=== PATIENT | female | born 1935 | race African-American/Black ===

== ENCOUNTER 2017-03-27 11:44 | Outpatient (CLI) | payer MEDICAID, MEDICARE ==
[2017-03-27 12:36] LABS: ALT (SGPT) 13 U/L (8-55); AST (SGOT) 21 U/L (5-34); Alkaline Phosphatase 76 U/L (40-150); Anion Gap 14 mmol/L (10-20); BUN (Urea Nitrogen) 21 mg/dL (9.8-20.1); Bilirubin, Total 0.5 mg/dL (0.2-1.2); Calc. Creatinine Clearance 0 mL/min (70-130); Calcium 9.3 mg/dL (7.8-10.44); Carbon Dioxide 30 mmol/L (23-31); Cardiac Risk 2.6 (Less than 4.5); Chloride 101 mmol/L (98-107); Cholesterol 156 mg/dL (< 200 Desired); Estimated GFR-MDRD 47; Globulin 2.9 g/dL (2.4-3.5); Glucose 90 mg/dL (83-110); HDL Cholesterol 60 mg/dL (>60 Neg Risk); LDL Cholesterol, Calculated 82 mg/dL; Potassium 4.1 mmol/L (3.5-5.1); Protein, Total 6.9 g/dL (5.8-8.1); Sodium 141 mmol/L (136-145); Triglycerides 70 mg/dL (Less than 150)
== END 2017-03-27 11:45 | disposition home or self-care (01) ==
LOC: MADLAB 11:44
PROVIDERS: ATTEND Internal Medicine Cardiovascular Disease
DX: E78.00 Pure hypercholesterolemia, unspecified (principal)
CPT/HCPCS: 36415; 80053; 80061; 84443

== ENCOUNTER 2018-08-17 11:43 | Outpatient (CLI) | payer MEDICARE, MEDICAID ==
--- NOTE | 2018-08-17 15:26 | ULT ---
THYROID ULTRASOUND: HISTORY: Followup of left thyroid nodule. COMPARISON: 07/31/2017 TECHNIQUE: Real-time imaging of the right and left lobes of the thyroid was performed. FINDINGS: The right lobe measures 1.1 x 1.4 x 3.8 cm in size. No mass is identified. On the left side, the left lobe measures 0.7 x 1.5 x 3.9 cm. The nodule seen on the previous examina tion is difficult to even definitely perceive on the current study. There is a vague, hypoechoic are a seen, which could correspond to the previous density. It measures in the 1 cm range. IMPRESSION: The left lobe nodule seen on the prior examination is definitely smaller and is actually difficult to even definitely perceive, although there does still appear to be a hypoechoic area, measuring in the 1 cm range. POS: ALAN
== END 2018-08-17 11:44 | disposition home or self-care (01) ==
LOC: MADULT 11:43
PROVIDERS: ATTEND Otolaryngology Plastic Surgery within the Head & Neck
DX: E04.1 Nontoxic single thyroid nodule (principal)
CPT/HCPCS: 76536

== ENCOUNTER 2020-01-18 18:30 | Emergency (ER) | payer MEDICARE, MEDICAID | END 2020-01-18 19:24 | disposition home or self-care (01) | LOC: MADERS 18:30 | DX: M62.838 Other muscle spasm (principal); E03.9 Hypothyroidism, unspecified; K21.9 Gastro-esophageal reflux disease without esophagitis; I25.10 Atherosclerotic heart disease of native coronary artery without angina pectoris; E11.9 Type 2 diabetes mellitus without complications; E78.5 Hyperlipidemia, unspecified; E78.00 Pure hypercholesterolemia, unspecified; I10 Essential (primary) hypertension; F41.9 Anxiety disorder, unspecified; Z79.02 Long term (current) use of antithrombotics/antiplatelets; Z79.82 Long term (current) use of aspirin; Z79.899 Other long term (current) drug therapy | CPT/HCPCS: 99283 ==

== ENCOUNTER 2021-10-31 09:02 | Outpatient (CLI) | payer MEDICARE, MEDICAID | END 2021-10-31 09:03 | disposition home or self-care (01) | LOC: MADRAD 09:02 → MADULT 09:03 | PROVIDERS: ATTEND Internal Medicine Nephrology | DX: I12.9 Hypertensive chronic kidney disease with stage 1 through stage 4 chronic kidney disease, or unspecified chronic kidney disease (principal); N18.30 Chronic kidney disease, stage 3 unspecified; N28.1 Cyst of kidney, acquired | CPT/HCPCS: 76770 ==

== ENCOUNTER 2021-11-08 16:38 | Emergency (ER) | payer MEDICARE, MEDICAID ==
[2021-11-08 19:02] LABS: #Basophils 0.1 thou/uL (0.0-0.2); #Lymphocytes 1.7 thou/uL (1.20-3.40); #Monocytes 0.6 thou/uL (0.11-0.59); #Neutrophils 2.5 thou/uL (1.40-6.50); %Basophils 1.5 % (0.0-1.0); %Eosinophils 0.8 % (0.0-10.0); %Monocytes 12.9 % (0.0-10.0); %Neutrophils 49.9 % (42.0-75.0); Hemoglobin 10.5 g/dL (12.0-16.0); Mean Corpuscular HGB CONC 30.9 g/dL (32.0-36.0); Mean Corpuscular Hemoglobin 28.3 pg (27.0-31.0); Mean Corpuscular Volume 91.6 fL (78.0-98.0); Mean Platelet Volume 5.9 fL (7.4-10.4); Platelet Count 259 thou/uL (130-400); RBC Distribution Width 15.5 % (11.5-14.5); Red Blood Cell (RBC) Count 3.71 mill/uL (4.20-5.40); White Blood Cell (WBC) Count 4.9 thou/uL (4.8-10.8)
[2021-11-08 19:22] LABS: ALT (SGPT) 24 U/L (8-55); AST (SGOT) 52 U/L (5-34); Albumin 3.7 g/dL (3.4-4.8); Alkaline Phosphatase 42 U/L (40-110); Anion Gap 17 mmol/L (10-20); BUN (Urea Nitrogen) 32 mg/dL (9.8-20.1); Bilirubin, Total 0.6 mg/dL (0.2-1.2); Calc. Creatinine Clearance 0 mL/min (70-130); Calcium 8.9 mg/dL (7.8-10.44); Carbon Dioxide 28 mmol/L (23-31); Chloride 94 mmol/L (98-107); Globulin 3.1 g/dL (2.4-3.5); Glucose 105 mg/dL (83-110); Potassium 3.7 mmol/L (3.5-5.1); Protein, Total 6.8 g/dL (5.8-8.1); Sodium 135 mmol/L (136-145)
[2021-11-08 19:38] LABS: CKMB 4.5 ng/mL (0-6.6)
[2021-11-08 19:52] LABS: SARS-CoV-2 NAA Rapid Test Not Detected (NotDetected)
[2021-11-08] MEDS ORDERED: Aspirin Chewable 81 MG TAB ONE (19:54)
[2021-11-09 06:09] LABS: CKMB 3.8 ng/mL (0-6.6)
== END 2021-11-09 09:00 | disposition left against medical advice (07) ==
LOC: MADERS 16:38
DX: N17.9 Acute kidney failure, unspecified (principal); R79.89 Other specified abnormal findings of blood chemistry; R94.31 Abnormal electrocardiogram [ECG] [EKG]; E03.9 Hypothyroidism, unspecified; K21.9 Gastro-esophageal reflux disease without esophagitis; I25.10 Atherosclerotic heart disease of native coronary artery without angina pectoris; E11.9 Type 2 diabetes mellitus without complications; E78.5 Hyperlipidemia, unspecified; I10 Essential (primary) hypertension; Z79.899 Other long term (current) drug therapy; Z79.82 Long term (current) use of aspirin
CPT/HCPCS: 70450; 71045; 82553; 83735; 84484; 93005; 94760; U0002; 36415; 80053; 84443; 85025

== ENCOUNTER 2023-01-22 14:39 | Emergency (ER) | payer OTHER | END 2023-01-22 16:55 | disposition home or self-care (01) | LOC: MADERS 14:39 | DX: S70.01XA Contusion of right hip, initial encounter (principal); M25.511 Pain in right shoulder; E78.00 Pure hypercholesterolemia, unspecified; I10 Essential (primary) hypertension; E11.9 Type 2 diabetes mellitus without complications; E03.9 Hypothyroidism, unspecified; K21.9 Gastro-esophageal reflux disease without esophagitis; I25.10 Atherosclerotic heart disease of native coronary artery without angina pectoris; W19.XXXA Unspecified fall, initial encounter | CPT/HCPCS: 70450; 70486; 72170 ==